=== PATIENT | female | born 1965 | race Caucasian/White ===

== ENCOUNTER 2018-08-29 12:56 | Emergency (ER) | payer MEDICARE ==
--- NOTE | 2018-08-29 14:00 | CT ---
EXAM: CT Facial Bones WO Con PROVIDED CLINICAL HISTORY: Swelling to right side of neck and jaw with bruising post seizure. Trauma. COMPARISON: None available. FINDINGS: There is a mildly comminuted fracture involving the proximal body of the right mandible with separati on of fracture fragments measuring approximately 5 mm. Distal fracture fragment is also slightly displaced laterally by 3 mm. No additional fracture of the mandible is seen. The temporomandibular vishal ints have a normal appearance bilaterally without evidence of a dislocation. Subcutaneous soft tissue swelling is also seen laterally at the level of the fracture with mild thickening of the platy sma muscle also likely related to edema in this region. The orbits have a normal and symmetric appearance bilaterally. No postseptal hematoma or stranding is seen. Mucous retention cysts are seen in the left maxillary antrum. There is minimal mucosal thickening in the right maxillary antrum. Minimal mucosal thickening is seen in anterior right ethmoidal air cells. The visualized mastoid air cells are clear. IMPRESSION: 1. Mildly comminuted, , and displaced fracture involving the proximal right mandible with ov erlying subcutaneous soft tissue swelling. 2. Mild sinus disease.
--- NOTE | 2018-08-29 14:01 | CT ---
Exam: CT cervical spine without contrast HISTORY: Trauma. Pain. COMPARISON: None FINDINGS: No craniocervical dissociation. Appropriate alignment of the lateral masses of C1 and C2. Intact odon toid process Appropriate alignment of the facets. Soft tissue neck structures: No mass, lymphadenopathy or hematoma. No prevertebral soft tissue swelli ng. Left thyroid lobe appears to be surgically absent. Unremarkable thyroid isthmus and right thyroid lobe. Upper mediastinum and lung apices: Unremarkable Central spinal canal: Neural foramina and central spinal canal are patent. Evaluation is limited by t echnique Vertebral bodies: Cervical spine vertebral body height is maintained. No fracture. Incompletely evaluated fracture involving the right mandible. Refer to separate maxillofacial CT for further detail. IMPRESSION: 1. No cervical spine fracture. 2. Incompletely evaluated right mandible fracture.
--- NOTE | 2018-08-29 14:08 | CT ---
CT BRAIN WITHOUT CONTRAST: Date: 08/29/18 HISTORY: 53-year-old female with trauma, bruising, post seizure. FINDINGS: Comparison made with exam of 07/20/11. No evidence of infarct, hemorrhage, midline shift, or abnormal extra-axial fluid collections are seen . The ventricular size is normal and the basilar cisterns are patent. The bony calvarium is intact. T here is mucosal disease in the paranasal sinuses. IMPRESSION: No CT evidence of acute intracranial process. POS: [facility]
[2018-08-29] MEDS ORDERED: Ondansetron PF 4 MG/2 ML Vial ONE ×2 (15:27→18:32)
[2018-08-29] MEDS ORDERED: Fentanyl 100 MCG/2 ML VIAL ONE ×2 (15:27→15:56)
[2018-08-29] MEDS ORDERED: HYDROcodone/Acetaminophen 10/325 mg Tablet ONE ×2 (18:08→18:09)
[2018-08-29] MEDS ORDERED: Morphine 4 MG/ML VIAL ONE ×2 (18:32→20:26)
[2018-08-29] MEDS ORDERED: Lorazepam 2 MG/ML VIAL ONE (21:08)
[2018-08-29] MEDS ORDERED: Ketorolac Tromethamine 30 MG/ML VIAL ONE (21:08)
== END 2018-08-29 21:02 | disposition short-term general hospital (02) ==
LOC: NAV ERS 12:56
DX: S02.601A Fracture of unspecified part of body of right mandible, initial encounter for closed fracture (principal); E78.00 Pure hypercholesterolemia, unspecified; I10 Essential (primary) hypertension; F41.9 Anxiety disorder, unspecified; F17.210 Nicotine dependence, cigarettes, uncomplicated; Z79.899 Other long term (current) drug therapy; W19.XXXA Unspecified fall, initial encounter
CPT/HCPCS: 70450; 70486; 72125; 96374; 96375; 96376; J1885; J2060; J2270; J2405; J3010

== ENCOUNTER 2018-10-10 12:50 | Emergency (ER) | payer MEDICARE ==
[2018-10-10] MEDS ORDERED: Naloxone HCl 0.4 mg/ml Vial ONE (13:07)
[2018-10-10] MEDS ORDERED: Ondansetron PF 4 MG/2 ML Vial ONE (13:07)
[2018-10-10 13:27] LABS: #Basophils 0.1 thou/uL (0.0-0.2); #Eosinphils 0.1 thou/uL (0.0-0.7); #Lymphocytes 2.6 thou/uL (1.20-3.40); #Monocytes 0.4 thou/uL (0.11-0.59); #Neutrophils 2.5 thou/uL (1.40-6.50); %Eosinophils 2.4 % (0.0-10.0); %Lymphocytes 45.4 % (21.0-51.0); %Monocytes 6.8 % (0.0-10.0); %Neutrophils 43.5 % (42.0-75.0); Hemoglobin 12.5 g/dL (12.0-16.0); Mean Corpuscular HGB CONC 31.8 g/dL (32.0-36.0); Mean Corpuscular Hemoglobin 27.3 pg (27.0-31.0); Mean Corpuscular Volume 85.8 fL (78.0-98.0); Mean Platelet Volume 7.3 fL (7.4-10.4); Platelet Count 227 thou/uL (130-400); RBC Distribution Width 11.4 % (11.5-14.5); Red Blood Cell (RBC) Count 4.58 mill/uL (4.20-5.40); White Blood Cell (WBC) Count 5.7 thou/uL (4.8-10.8)
--- NOTE | 2018-10-10 13:52 | CT ---
CT BRAIN WITHOUT CONTRAST: HISTORY: Altered mental status FINDINGS: Comparison is made with exams of 08/29/2018 and 09/15/2018. No evidence of acute infarct, hemorrhage, midline shift or abnormal extra-axial fluid collections is seen. The ventricular size is appropriate and the basilar cisterns are patent. The bony calvarium is intact. The mastoid air cells are well aerated. There are mucus retention cysts versus polyps in t he left maxillary sinus. IMPRESSION: No CT evidence of acute intracranial process.
[2018-10-10 13:54] LABS: ALT (SGPT) 11 U/L (8-55); AST (SGOT) 21 U/L (5-34); Albumin 4.1 g/dL (3.5-5.0); Alkaline Phosphatase 71 U/L (40-150); Anion Gap 16 mmol/L (10-20); BUN (Urea Nitrogen) 12 mg/dL (9.8-20.1); Bilirubin, Total 0.2 mg/dL (0.2-1.2); Calc. Creatinine Clearance 0 mL/min (70-130); Calcium 9.3 mg/dL (7.8-10.44); Carbon Dioxide 25 mmol/L (22-29); Chloride 103 mmol/L (98-107); Estimated GFR-MDRD Greater than 90; Globulin 2.6 g/dL (2.4-3.5); Glucose 99 mg/dL (70-105); Potassium 3.6 mmol/L (3.5-5.1); Protein, Total 6.7 g/dL (6.0-8.3); Sodium 140 mmol/L (136-145)
[2018-10-10 13:55] LABS: BHCG - Serum Negative (NEGATIVE); Pregs Control Bar Appear? YES (CONTROL BAR)
[2018-10-10 14:17] LABS: Bilirubin Negative (Negative); Blood, Urine Negative (Negative); Clarity Clear (Clear); Glucose, Urine (Dipstick) Negative (Negative); Leukocyte Negative (Negative); Nitrite Negative (Negative); Protein, Urine (Dipstick) Negative (Neg-Trace); Specific Gravity, Urine 1.015 (1.005-1.030); Urobilinogen 0.2 mg/dL (0.2-1.0); pH, Urine 6.5 (5.0-9.0)
[2018-10-10 14:26] LABS: Amphetamine Not Detected (NotDetected); Barbiturates Screen Not Detected (NotDetected); Benzodiazepine Screen Detected (NotDetected); Cocaine Metabolite Screen Not Detected (NotDetected); Medtox Control Line Valid? VALID (VALID); Methadone Not Detected (NotDetected); Methamphetamine Not Detected (NotDetected); Opiate Screen Detected (NotDetected); Oxycodone Screen Not Detected (NotDetected); Phencyclidine (PCP) Not Detected (NotDetected); THC/Cannabinoid Screen Not Detected (NotDetected); Tricyclic Screen Not Detected (NotDetected)
[2018-10-10] MEDS ORDERED: Ketorolac Tromethamine 30 MG/ML VIAL ONE (14:40)
[2018-10-10] MEDS ORDERED: Sodium Chloride 0.9% 1,000 ML ONE (15:06)
--- NOTE | 2018-10-10 15:09 | CT ---
CT FACIAL BONES WITHOUT CONTRAST: HISTORY: Recent fall._Facial pain COMPARISON: 09/01/2018. FINDINGS: Metal plate and screws stabilizing the right mandibular body fracture are unchanged in position and a lignment. No new or acute facial bone fracture is seen. No temporomandibular dislocation is identif ied. There are mucosal retention cysts versus polyps in the left maxillary sinus. IMPRESSION: No new or acute facial bone fracture since 09/01/2018. POS: [facility]
--- NOTE | 2018-10-10 15:10 | RAD ---
Chest AP view INDICATION: History of fall COMPARISON: August 29, 2018 FINDINGS: Lungs:The lungs are clear Cardiac silhouette pulmonary vasculature:The cardiomediastinal silhouette appears within normal limit s. Pleural spaces:No pleural effusion or pneumothorax is demonstrated. Upper abdomen:No abnormality seen. Osseous structures: No acute osseous abnormality. Additional findings:None. IMPRESSION: No acute cardiopulmonary abnormality.
== END 2018-10-10 17:40 | disposition home or self-care (01) ==
LOC: NAV ERS 12:50
DX: T40.601A Poisoning by unspecified narcotics, accidental (unintentional), initial encounter (principal); R41.82 Altered mental status, unspecified; F17.210 Nicotine dependence, cigarettes, uncomplicated; I10 Essential (primary) hypertension; F41.9 Anxiety disorder, unspecified; Z91.410 Personal history of adult physical and sexual abuse; Z87.442 Personal history of urinary calculi; Z79.891 Long term (current) use of opiate analgesic; Z79.899 Other long term (current) drug therapy
CPT/HCPCS: 51701; 70450; 70486; 71045; 80053; 80306; 81003; 83605; 84484; 84703; 85025; 93005; 94760; 96361; 96374; 96375; A4353; J1885; J2310; J2405; J7050

== ENCOUNTER 2020-02-15 09:23 | Emergency (ER) | payer MEDICARE ==
--- NOTE | 2020-02-15 10:00 | RAD ---
EXAM: 3 views of the right wrist HISTORY: Wrist pain COMPARISON: None FINDINGS: 3 views of the right wrist shows a minimally displaced fracture of the radial metaphysis. M ild soft tissue swelling is seen. No degenerative changes are present. IMPRESSION: Distal radius fracture
--- NOTE | 2020-02-15 10:04 | RAD ---
EXAM: 3 views of the right hand COMPARISON: None HISTORY: Hand pain FINDINGS: 3 views of the hand shows no a questionable small fracture of the distal aspect of the midd le phalanx of the small finger. There may be a minimal nondisplaced fracture of the distal radial metaphysis. No degenerative changes are seen. No soft tissue swelling is present. IMPRESSION: 1. Middle phalanx fracture of the small finger 2. Possible distal radius fracture
== END 2020-02-15 10:43 | disposition home or self-care (01) ==
LOC: NAV ERS 09:23
DX: S52.501A Unspecified fracture of the lower end of right radius, initial encounter for closed fracture (principal); S62.626A Displaced fracture of middle phalanx of right little finger, initial encounter for closed fracture; I10 Essential (primary) hypertension; F41.9 Anxiety disorder, unspecified; F17.210 Nicotine dependence, cigarettes, uncomplicated; W18.30XA Fall on same level, unspecified, initial encounter
CPT/HCPCS: 29125; 99406

== ENCOUNTER 2023-10-28 10:11 | Outpatient (CLI) | payer MEDICAID, MEDICARE | END 2023-10-28 10:12 | disposition home or self-care (01) | LOC: NAV RAD 10:11 | PROVIDERS: ATTEND Student in an Organized Health Care Education/Training Program | DX: M25.511 Pain in right shoulder (principal); M19.011 Primary osteoarthritis, right shoulder; M25.711 Osteophyte, right shoulder ==